=== PATIENT | male | born 1985 | race Caucasian/White ===

== ENCOUNTER 2017-11-14 17:51 | Emergency (ER) | payer MEDICAID ==
[~2017-11-14] VITALS: Ht 185.4 cm; Wt 84.0 kg
[~2017-11-14 17:51] MED LIST: CEPH-572 PO; CEPH500C5 PO; HYDR-569 PO; IBUP-1984 PO; IBUP-1985 PO; TRAM50TA2 PO
[2017-11-14 18:59] LABS: BASOPHILS % (AUTO) 0.4 % (0-1); EOSINOPHILS # (AUTO) 0.1 X10'3 (0-0.9); HEMATOCRIT 45.6 % (42.0-52.0); HEMOGLOBIN 15.3 g/dl (14.0-17.9); LYMPHOCYTES # (AUTO) 2.7 X10'3 (1.1-4.8); LYMPHOCYTES % (AUTO) 25.4 % (21-51); MEAN CORPUSCULAR HEMOGLOBIN 31.4 PG (27.0-31.0); MEAN CORPUSCULAR HGB CONC 33.6 % (33.0-36.5); MEAN CORPUSCULAR VOLUME 93.7 FL (78-98); MEAN PLATELET VOLUME 7.4 FL (7.4-10.4); MONOCYTES # (AUTO) 0.9 X10'3 (0-0.9); MONOCYTES % (AUTO) 8.8 % (2-12); NEUTROPHILS # (AUTO) 6.9 X10'3 (1.8-7.7); NEUTROPHILS % (AUTO) 64.4 % (42-75); PLATELET COUNT 578 X10'3 (140-440); RED BLOOD COUNT 4.87 X10'6 (4.70-6.10); WHITE BLOOD COUNT 10.6 X10'3 (4.5-11.0)
[2017-11-14 19:00] LABS: ALANINE AMINOTRANSFERASE 39 U/L (12-78); ALBUMIN 3.7 G/DL (3.4-5.0); ALKALINE PHOSPHATASE 109 IU/L (46-116); ANION GAP 8 (8-16); ASPARTATE AMINO TRANSFERASE 24 U/L (10-37); BILIRUBIN,TOTAL 0.5 MG/DL (0.1-1.0); BLOOD UREA NITROGEN 9 MG/DL (7-18); BUN/CREATININE RATIO 11.5 (5.4-32.0); CALCIUM 9.5 MG/DL (8.5-10.1); CHLORIDE 107 MMOL/L (99-107); CREATININE 0.78 MG/DL (0.60-1.10); GLUCOSE 102 MG/DL (70-104); POTASSIUM 3.1 MMOL/L (3.5-5.1); SODIUM 144 MMOL/L (135-145); TOTAL CARBON DIOXIDE 28.6 MMOL/L (24-32); TOTAL PROTEIN 7.5 G/DL (6.4-8.2); eGFR > 90 ML/MIN
[2017-11-14 19:09] LABS: MAGNESIUM 2.2 MG/DL (1.5-2.4)
[2017-11-14] MEDS ORDERED: normal saline 1000ML IV soln IVB ONE (20:05)
[2017-11-14] MEDS ORDERED: potassium Cl 20 mEq SR tablet PO STA (21:44)
[2017-11-14 22:08] LABS: CLARITY,URINE CLEAR (Clear); COLOR,URINE YELLOW (Yellow); GLUCOSE, URINE NEGATIVE (Neg); KETONES,URINE NEGATIVE (Neg); LEUKOCYTE ESTERASE ,URINE NEGATIVE (Neg); NITRITES, URINE NEGATIVE (Neg); OCCULT BLOOD,URINE NEGATIVE (Neg); PROTEIN,URINE NEGATIVE (Neg); UROBILINOGEN,URINE 0.2 E.U/dL (0.2-1.0)
[2017-11-14 22:10] LABS: UA COLLECTION TYPE VOIDED
[2017-11-14 22:17] VITALS: BP 130/96
[2017-11-14 22:18] LABS: URINE AMPHETAMINE SCREEN POSITIVE (Neg); URINE BARBITUATE SCREEN NEGATIVE (Neg); URINE BENZODIAZEPINES SCREEN NEGATIVE (Neg); URINE CANNABINOID SCREEN NEGATIVE (Neg); URINE COCAINE SCREEN NEGATIVE (Neg); URINE METHADONE SCREEN NEGATIVE (Neg); URINE OPIATE SCREEN POSITIVE (Neg); URINE PHENCYCLIDINE SCREEN NEGATIVE (Neg)
== END 2017-11-14 23:02 | disposition home or self-care (01) ==
LOC: ER 17:52
DX: R07.9 Chest pain, unspecified (principal); F15.90 Other stimulant use, unspecified, uncomplicated; F11.90 Opioid use, unspecified, uncomplicated; Z79.2 Long term (current) use of antibiotics; Z79.899 Other long term (current) drug therapy
CPT/HCPCS: 36415; 71045; 80053; 80305; 81003; 83735; 83880; 84484; 85025; 93005; 99285; J7030

== ENCOUNTER 2022-08-03 16:08 | Emergency (ER) | payer MEDICAID ==
[~2022-08-03] VITALS: Ht 185.4 cm; Wt 70.0 kg
[~2022-08-03 16:08] MED LIST changes: -CEPH500C5 PO; +HYDR-4383 PO; -HYDR-569 PO
[2022-08-03 16:15] VITALS: BP 137/83
[2022-08-03] MEDS ORDERED: cephalexin 500mg capsule PO ONE (18:05)
[2022-08-03] MEDS ORDERED: ketorolac trometh inj. 60 MG/2 ML VIAL IM ONE (18:05)
[2022-08-03] MEDS ORDERED: DOXYCYCLINE 100MG CAPSULE PO STA (18:11)
[2022-08-03] MEDS ORDERED: sulfamethoxazole/trimethoprim DS (800/160mg) tablet PO ONE (18:15)
[2022-08-03] MEDS ORDERED: DOXY-1 PO (18:16)
[2022-08-03] MEDS ORDERED: SULF1TAB49 PO (18:16)
== END 2022-08-03 18:32 | disposition home or self-care (01) ==
LOC: ER 16:09
DX: L03.116 Cellulitis of left lower limb (principal); F17.200 Nicotine dependence, unspecified, uncomplicated; F15.10 Other stimulant abuse, uncomplicated; Z59.00 Homelessness unspecified; Z79.899 Other long term (current) drug therapy
CPT/HCPCS: 96372; 99283; J1885